=== PATIENT | male | born 1945 | race Caucasian/White ===

== ENCOUNTER → 2017-07-26 | Outpatient (CLI) | payer MEDICARE ==
--- NOTE | 2017-07-26 11:05 | PCVCIMAG ---
APPROVED REPORT Patient Location: Out-Patient Indications Bruit Doppler Spectral Velocity Analysis PSV / EDVPSV / EDV ECA (R) 235 / 18 cm/sECA (L) 88 / 13 cm/s dICA (R) 47 / 19 cm/sdICA (L) 69 / 23 cm/s Dorothea (R) 84 / 24 cm/smICA (L) 84 / 27 cm/s pICA (R) 93 / 12 cm/spICA (L) 88 / 22 cm/s Bulb (R) 53 / 11 cm/sBulb (L) 67 / 15 cm/s dCCA (R) 91 / 16 cm/sdCCA (L) 83 / 20 cm/s mCCA (R) 100 / 17 cm/smCCA (L) 97 / 19 cm/s Vert (R) 54 / 16 cm/sVert (L) 53 / 13 cm/s ICA/CCA ICA/CCA Findings The right carotid bulb has no significant plaque. The right proximal internal carotid artery shows no significant stenosis. The right common carotid artery shows no significant stenosis. The right external carotid artery shows >50% stenosis. The left carotid bulb has mild calcified plaque. The left proximal internal carotid artery shows no significant stenosis. The left common carotid artery shows no significant stenosis. The left external carotid artery shows no significant stenosis. Conclusion 1. Right internal carotid artery with minimal plaquing 2. Left internal carotid artery with mild plaquing (<20%) 3. Antegrade vertebral flow
--- NOTE | 2017-07-26 16:47 | PCVCIMAG ---
APPROVED REPORT Exam: Stress Echocardiogram Indication: Hypertension, Family hx. Patient Location: Echo lab Stress Nurse: Estela Nova RN Status: routine Ht: 5 ft 11 in HR: 64 bpm BP: 128/80 mmHg Rhythm: NSR Procedure The patient underwent an Exercise Stress Test using the Ed Protocol. Blood pressure, heart rate, and EKG were monitored. An Echocardiogram was performed by topography technician in four stages in quad fashion. At peak stress, four selected images were obtained and placed side by side with resting images for comparison. Stress Test Details Stress Test: Exercise stress testing was performed using a Ed protocol. HR Resting HR: 64 bpmMax Heart Rate (APMHR): 150 bpm Max HR Achieved: 148 bpmTarget HR (85% APMHR): 127 bpm % of APMHR: 98 HR response to stress: Normal HR response to stress BP Resting BP: 128/80 mmHg Max BP: 164/80 mmHg ECG Resting ECG: Sinus Rhythm Stress ECG: Sinus Rhythm Clinical Reason for Termination: Maximal effort Exercise duration: 9 min 22 sec Highest Stage Achieved: Stage 4: 4.2 mph at 16% grade. Exercise capacity: 11.40 METs Pre-Stress Echo The resting Echocardiogram showed normal left ventricular contractility with an estimated Ejection Fraction of about 55-60%. Normal wall motion in all segments on baseline images. Post-Stress Echo The stress Echocardiogram showed normal left ventricular contractility with an estimated Ejection Fraction of about 60-65%. Normal augmentation of wall motion in all segments on post stress images. Clinical No clinical or ECG evidence for ischemia. Conclusion Clinical Response: Non-ischemic Exercise Capacity: Average Stress ECG Response: Non-ischemic Stress Echo Images: Non-ischemic Other Information Study Quality: Good
== END | disposition home or self-care (01) ==
LOC: PCVCIMAG 09:57
PROVIDERS: ATTEND Internal Medicine Cardiovascular Disease
DX: I65.23 Occlusion and stenosis of bilateral carotid arteries (principal); E78.5 Hyperlipidemia, unspecified; I10 Essential (primary) hypertension
CPT/HCPCS: 93325; 93351; 93880